=== PATIENT | female | born 1960 | race Caucasian/White ===

== ENCOUNTER → 2020-09-20 | Outpatient (CLI) | payer MEDICARE, OTHER ==
[~2020-09-20] MED LIST: ? ANTIDEPRESSANT; AMIT10 PO; AZIT500 PO; CEFP500; CYCL10 PO; ESTRADIOL; FAMO20 PO; GABAPENTIN PO; HYDROCODONE-HOMA5 ML PO; LEVSOD50 PO; Lexapro 10 mg T10 MG PO; METPRE4DP PO; Naprosyn500 MG PO; PRODEXEL PO; SODCHL.65S
== END | disposition home or self-care (01) ==
LOC: LAB SHORT 07:43 → PLD 07:43
DX: L82.1 Other seborrheic keratosis (principal)
CPT/HCPCS: 88305

== ENCOUNTER → 2023-10-01 | Outpatient (CLI) | payer OTHER ==
[2023-10-01 18:20] LABS: Free Thyroxine 0.91 ng/dL (0.70-1.60)
[2023-10-01 18:25] LABS: Albumin, Blood 4.3 g/dL (3.4-5.0); Albumin/Globulin Ratio 1.2 (0.8-1.8); Bilirubin, Total 0.2 mg/dL (0.1-1.0); Bun/Creatinine Ratio 25.9 (12.0-20.0); Calcium, Blood 9.1 mg/dL (8.5-10.1); Creatinine, Blood 0.54 mg/dL (0.40-1.00); Globulin, Blood 3.5 g/dL (2.2-4.0); Potassium, Blood 4.2 mmol/L (3.5-5.5); Thyroid Stimulating Hormone 0.782 uIU/mL (0.360-4.800); Total Protein, Blood 7.8 g/dL (6.4-8.2); Triiodothyronine, Free 2.94 pg/mL (2.18-3.98)
== END | disposition home or self-care (01) ==
LOC: LAB SHORT 17:16 → LAB 17:16
PROVIDERS: Nurse Practitioner Family
DX: E03.9 Hypothyroidism, unspecified (principal); I10 Essential (primary) hypertension; L60.8 Other nail disorders
CPT/HCPCS: 80053; 84439; 84443; 84481